=== PATIENT | female | born 1930 | race Caucasian/White ===

== ENCOUNTER 2017-07-25 15:11 | Inpatient (IN) ==
--- NOTE | 2017-07-25 15:15 | DR.GENAD ---
HPI - PCP Primary Care Physician: Dr Valenzuela - Complaint/Symptoms Chief Complaint Doctors Comments: Patient presented with complaint of i can't breath. She has a defibrillator but it did not go off. Followed by access clerk in [place]. She denies chest pain. PMH - PMH Past Medical History: Anemia, GERD, Headaches, Hypertension Past Surgical History: Yes Surgical History: Appendectomy, Cholecystectomy - Family History Family Medical History: Cancer - Social History Do you use any recreational Drugs:: No ROS - Review of Systems Eyes: No Symptoms Reported ENTM: No Symptoms Reported Respiratoy: See HPI Cardiovascular: No Symptoms Reported Gastrointestinal/Abdominal: No Symptoms Reported Genitourinary: No Symptoms Reported Neurological: No Symptoms Reported Musculoskeletal: No Symptoms Reported Integumentary: No Symptoms Reported Hematologic/Lymphatic: No Symptoms Reported Endocrine: No Symptoms Reported Psychiatric: No Symptoms Reported All Other Systems: Reviewed and Negative PE - General Limitations: No Limitations General Appearance: Alert, In No Apparent Distress - Head Head Exam: Normal Inspection, Atraumatic - Eyes Eye exam: Normal Appearance, PERRL, EOMI - ENT ENT Exam: Normal Exam External Ear Exam: Normal External Inspection TM/Canal Exam: Bilateral Normal Nose Exam: Normal Nose Exam Mouth Exam: Normal Inspection Throat Exam: Normal Inspection - Neck Neck Exam: Normal Inspection - Chest Chest Inspection: Normal Inspection - Respiratory Respiratory Exam: Normal Lung Sounds Bilat Respiratory Exam: Bilateral Clear to Auscultation - Cardiovascular Cardiovascular Exam: Regular Rate, Normal Rhythm - Abdominal Exam Abdominal Exam: Normal Inspection, Normal Bowel Sounds Abdominal Tenderness: negative: RUQ, RLQ, LUQ, LLQ, Epigastrium, Suprapubic, Diffuse, Mild, Moderate, Severe, Other - Extremities Extremities Exam: Normal Inspection, Full ROM - Back Back Exam: Normal Inspection, Full ROM - Neurologic Neurological Exam: Alert, Oriented X3, CN II-XII Intact - Psychiatric Psychiatric Exam: Normal Affect - Skin Skin Exam: Warm, Dry, Intact - Vital Signs Vitals: Temperature 98.1 F Pulse Rate [Apical] 82 Pulse Rate 88 Respiratory Rate 18 Blood Pressure [Left Arm] 164/115 Blood Pressure [Right Arm] 140/73 Blood Pressure 139/86 O2 Sat by Pulse Oximetry 95 Course - Reevaluation 1st: Improved ROR - Labs Reviewed Result Diagrams: 07/25/17 15:25 07/25/17 15:25 - XRAY XRAY Interpreted by: Radiologist (Chest: The cardiac silhouette appears markedly enlarged. The cardiac silhouette size may be accentuated by the AP projection. Therre are increased interstitial markings seen in the lungs bilaterally, with confluent opacities seen in the left mid and lower lung zones , obscuring visualization of the left hemidiaphragm and left costophrenic angle. Findings could be due to pulmonary edema and/or pneumonia, with a possible associated small left-sided pleural effusion.) - Labs Reviewed Laboratory: WBC 6.7 X10^3/uL (3.6-10.0) 07/25/17 15:25 RBC 4.34 X10^6/uL (3.5-5.4) 07/25/17 15:25 Hgb 12.4 g/dL (12.0-16.0) 07/25/17 15:25 Hct 37.1 % (36.0-47.0) 07/25/17 15:25 MCV 85.4 fL (80.0-100.0) 07/25/17 15:25 MCH 28.5 pg (27.0-34.0) 07/25/17 15:25 MCHC 33.4 g/dL (33.0-35.0) 07/25/17 15:25 RDW 13.8 % (11.6-16.5) 07/25/17 15: Plt Count 185 X10^3/uL (150.0-450.0) 07/25/17 15:25 MPV 8.7 fL (7.4-11.0) 07/25/17 15:25 Neut % (Auto) 52.8 % (42.0-75.0) 07/25/17 15:25 Lymph % (Auto) 34.4 % (21.0-51.0) 07/25/17 15:25 [place] % (Auto) 9.7 % (0.0-13.0) 07/25/17 15:25 Eos % (Auto) 1.8 % (0.9-2.9) 07/25/17 15:25 Baso % (Auto) 1.3 % (0.2-1.0) H 07/25/17 15:25 Neut # (Auto) 3.5 x10^3/uL (2.2-4.8) 07/25/17 15:25 Lymph # (Auto) 2.3 X10^3/uL (1.3-2.9) 07/25/17 15:25 [place] # (Auto) 0.6 x10^3/uL (0.3-0.8) 07/25/17 15: Eos # (Auto) 0.1 x10^3/uL (0.0-0.2) 07/25/17: Baso # (Auto) 0.1 X10^3/uL (0.0-0.1) 07/25/17 15: Absolute Nucleated RBC 0.1 /100WBC 07/25/17: INR Target Range - 07/25/17: INR 1.68 (0.8-1.3) H 07/25/17 15: D-Dimer 146 ng/mL (0-400) 07/25/17 15: Sample Site Lb 07/25/17 15: ABG pH 7.420 (7.35-7.45) 07/25/17: ABG pCO2 34.0 mmHg (35.0-45.0) L 07/25/17 15: ABG pO2 107.0 mmHg (80.0-100.0) H 07/25/17: ABG HCO3 22.1 mmol/L (22-26) 07/25/17: ABG O2 Saturation 98.0 % (90-100) 07/25/17: ABG Base Excess -1.8 mmol/L (-2.0-2.0) 07/25/17: Figueroa Test N/a 07/25/17: A-a Gradient 50.0 mmHg 07/25/17 15: FiO2 28.000 07/25/17 15:33 Blood Gas Comments Pt [facility]vey well. cdn 07/25/17 15: Sodium 127 mmol/L (136-145) L 07/25/17 15: Corrected Sodium 128 mmol/L (136-145) L 07/25/17 15: Potassium 5.0 mmol/L (3.5-5.1) 07/25/17 15: Chloride 94 mmol/L (98-107) L 07/25/17 15:25 Carbon Dioxide 22.8 mmol/L (21-32) 07/25/17 15:25 BUN 21 mg/dL (7-18) H 07/25/17 15:25 Creatinine 1.14 mg/dL (0.55-1.02) H 07/25/17 15:25 Est GFR (MDRD) Af Amer 58 (>60) L 07/25/17 15:25 Est GFR (MDRD) Non-Af 48 (>60) L 07/25/17 15:25 Glucose 129 mg/dL (65-99) H 07/25/17 15:25 Calcium 9.2 mg/dL (8.5-10.1) 07/25/17 15:25 Corrected Calcium TNP 07/25/17 15:25 Magnesium 1.9 mg/dL (1.7-2.9) 07/25/17 15:25 Total Bilirubin 1.10 mg/dL (0.2-1.0) H 07/25/17 15:25 AST 41 Units/L (15-37) H 07/25/17 15:25 ALT 33 Units/L (12-78) 07/25/17 15:25 Alkaline Phosphatase 70 Units/L (46-116) 07/25/17 15:25 Creatine Kinase 50 Units/L (26-192) 07/25/17 15:25 CK-MB (CK-2) 1.2 ng/mL (0-4.0) 07/25/17 15:25 CK/CKMB % Calc 2.4 % (<4) 07/25/17 15:25 Troponin I < 0.02 ng/mL (0-1.5) 07/25/17 15:25 Total Protein 6.6 g/dL (6.4-8.2) 07/25/17 15:25 Albumin 3.4 g/dL (3.4-5.0) 07/25/17 15:25 Globulin 3.2 g/dL (2.5-4.5) 07/25/17 15:25 Albumin/Globulin Ratio 1.1 Ratio (1.1-2.1) 07/25/17 15:25 - Diagnosis Discharge Problem: Hyponatremia Pneumonia Qualifiers: Pneumonia type: due to unspecified organism Laterality: left Lung location: lower lobe of lung Qualified Code(s): J18.1 - Lobar pneumonia, unspecified organism Dyspnea Qualifiers: Dyspnea type: shortness of breath Qualified Code(s): R06.02 - Shortness of breath - Discharge Plan Disposition: ADMITTED INPATIENT Condition: Stable - Follow ups/Referrals Follow ups/Referrals: Alexander Valenzuela [Primary Care Provider] - 3 days - Instructions
[2017-07-25 15:38] LABS: ABG BASE EXCESS -1.8 mmol/L (-2.0-2.0); ABG HCO3 22.1 mmol/L (22-26)
[2017-07-25 15:45] LABS: BASOPHILS # (AUTO) 0.1 X10^3/uL (0.0-0.1); BASOPHILS % (AUTO) 1.3 % (0.2-1.0); EOSINOPHILS # (AUTO) 0.1 x10^3/uL (0.0-0.2); EOSINOPHILS % (AUTO) 1.8 % (0.9-2.9); HEMATOCRIT 37.1 % (36.0-47.0); HEMOGLOBIN 12.4 g/dL (12.0-16.0); LYMPHOCYTES # (AUTO) 2.3 X10^3/uL (1.3-2.9); LYMPHOCYTES % (AUTO) 34.4 % (21.0-51.0); MEAN CORPUSCULAR HEMOGLOBIN 28.5 pg (27.0-34.0); MEAN CORPUSCULAR HGB CONC 33.4 g/dL (33.0-35.0); MEAN CORPUSCULAR VOLUME 85.4 fL (80.0-100.0); MEAN PLATELET VOLUME 8.7 fL (7.4-11.0); MONOCYTES # (AUTO) 0.6 x10^3/uL (0.3-0.8); MONOCYTES % (AUTO) 9.7 % (0.0-13.0); NEUTROPHILS # (AUTO) 3.5 x10^3/uL (2.2-4.8); NEUTROPHILS % (AUTO) 52.8 % (42.0-75.0); PLATELET COUNT 185 X10^3/uL (150.0-450.0); RED BLOOD COUNT 4.34 X10^6/uL (3.5-5.4); RED CELL DISTRIBUTION WIDTH 13.8 % (11.6-16.5); WHITE BLOOD COUNT 6.7 X10^3/uL (3.6-10.0)
[2017-07-25 15:51] LABS: BLOOD UREA NITROGEN 21 mg/dL (7-18); CALCIUM 9.2 mg/dL (8.5-10.1); CARBON DIOXIDE 22.8 mmol/L (21-32); CHLORIDE 94 mmol/L (98-107); COR NA(FOR HYPERGLY) 128 mmol/L (136-145); CREATININE 1.14 mg/dL (0.55-1.02); SODIUM 127 mmol/L (136-145); TROPONIN I < 0.02 ng/mL (0-1.5); eGFR NON BLACK RACES 48 (>60)
[2017-07-25 15:55] LABS: ALANINE AMINOTRANSFERASE 33 Units/L (12-78); ALBUMIN 3.4 g/dL (3.4-5.0); ALKALINE PHOSPHATASE 70 Units/L (46-116); ASPARTATE AMINO TRANSFERASE 41 Units/L (15-37); CKMB % 2.4 % (<4); CREATINE KINASE 50 Units/L (26-192); CREATINE KINASE MB 1.2 ng/mL (0-4.0); MAGNESIUM 1.9 mg/dL (1.7-2.9); TOTAL PROTEIN 6.6 g/dL (6.4-8.2)
[2017-07-25] MEDS: NS 1000 ML 1,000 ML IV SCH (16:00)
--- NOTE | 2017-07-25 16:50 | RAD ---
Examination: Chest x-ray. Clinical history: Weakness and shortness of breath for 1 day. Technique: A single portable AP view of the chest was obtained. Comparison: 12/28/2015. Findings: A pacemaker/defibrillator device is seen overlying the right hemithorax with the lead terminating in the right ventricle. Monitor leads are seen overlying the chest. The cardiac silhouette appears markedly enlarged. The cardiac silhouette size may be accentuated by t he AP projection. The thoracic aorta is calcified and tortuous. No pneumothorax is noted. There are increased interstitial markings seen in the lungs bilaterally, with confluent opacities see n in the left mid and lower lung zones, obscuring visualization of the left hemidiaphragm and left co stophrenic angle. Findings could be due to pulmonary edema and/or pneumonia, with a possible associat ed small left-sided pleural effusion. The bones are diffusely osteopenic. There is a mild thoracolumbar scoliosis seen convex to the left, probably positional in nature. Degenerative changes are noted in the spine. No acute osseous abnormal ity is noted. Impression: 1. The cardiac silhouette appears markedly enlarged. The cardiac silhouette size may be accentuated b y the AP projection. 2. There are increased interstitial markings seen in the lungs bilaterally, with confluent opacities seen in the left mid and lower lung zones, obscuring visualization of the left hemidiaphragm and left costophrenic angle. Findings could be due to pulmonary edema and/or pneumonia, with a possible assoc iated small left-sided pleural effusion. Reported By:
[2017-07-25] MEDS ORDERED: ROCEPHIN VIAL 1 GRAM 1 G in NS 100 ML IV + SPIKE MINIBAG* 100 ML IV ONE (17:20)
[2017-07-25] MEDS ORDERED: ROCEPHIN 1 GRAM IV PREMIX 1 G/50 ML IV.SOLN. IV ONE (17:43)
[2017-07-25] MEDS ORDERED: TUSSIONEX PENNKINETIC SUSP PO PRN (18:08)
[2017-07-25] MEDS ORDERED: SODIUM CHL HYPERTONIC ** 3% ** 500 ML IV ONE (18:19)
[2017-07-25] MEDS ORDERED: SALINE 3% 15 ML NEB TX ONE (18:44)
[2017-07-25] MEDS ORDERED: SALINE 3% 15 ML NEB TX NEB ONE (18:45)
[2017-07-25] MEDS ORDERED: NS 1/2 1000 ML IV 1,000 ML IV SCH (19:00)
[2017-07-25 19:56] VITALS: BMI 22.2
[2017-07-25] MEDS ORDERED: TYLENOL 325 MG TAB PO PRN (19:57)
[2017-07-25] MEDS: LASIX PO SCH (20:24)
[2017-07-25] MEDS: ROBITUSSIN DM PO SCH (20:24)
[2017-07-25] MEDS: COREG TAB 12.5 MG PO SCH (20:27)
[2017-07-25] MEDS: DUONEB 0.5 MG/3 MG NEB SCH (20:43)
--- NOTE | 2017-07-25 21:26 | DR.H&P ---
H&P - History & Physical for Day of: H&P Date: 07/25/17 - Chief Complaint Chief Complaint: SHORTNESS OF BREATH - History of Present Illness History of Present Illness: IS A 87 YEAR OLD PATIENT OF OURS WHO PRESENTED TO THE EMERGENCY ROOM WITH COMPLAINTS OF SHORTNESS OF BREATH. SHE DENIES CHEST PAIN AT THE TIME. PATIENT REPORTS THAT SHE DOES HAVE A DEFIBRILLATOR, BUT DENIES IT GOING OFF. SHE ALSO REPORTS WEAKNESS FOR THE PAST TWO DAYS. ON ARRIVAL, VITALS WERE 98.1-88-22-94%RA-139/86. LABS WERE OBTAINED. ABNORMAL LAB VALUES INCLUDE THE FOLLOWING: INR 1.68, SODIUM 127, CHLORIDE 94, BUN 21, CREATININE 1.14, GLUCOSE 129, TOTAL PROTEIN 1.10, AST 41. AN ABG WAS OBTAINED AND REVEALED PH 7.420, PC02 34.0, P02 107.0, HC03 22.1, 02 SATURATION 98.0. EKG REVEALED ATRIAL FIBRILLATION WITH HR 86. CHEST XRAY REVEALED MARKEDLY ENLARGED CARDIAC SILHUETTE. INCREASED INTERSTITIAL MARKINGS SEEN IN THE LUNGS BILATERALLY, WITH CONFLUENT OPACITIES SEEN IN THE LEFT MID AND LOWER LUNG ZONES , OBSCURING VISUALIZATION OF THE LEFT HEMIDIAPHRAGM AND LEFT COSTOPHRENIC ANGLE. FINDINGS COULD BE DUE TO PULMONARY EDEMA AND.OR PNEUMONIA, WITH A POSSIBLE ASSOCIATED SMALL LEFT SIDED PLEURAL EFFUSION. SHE WAS ADMITTED TO THE HOSPITAL FOR FURTHER EVALUATION AND TREATMENT. SHE WAS STARTED ON DUONEBS, NORMAL SALINE AT 100ML/HR, LEVAQUIN IV, AND FORTAZ IV. WE PLAN TO FOLLOW UP WITH AM LABS AND CHEST XRAY AND CONTINUE TO MONITOR PATIENT. - Past Medical History Past Medical History: Anemia, GERD, Headaches, Hypertension - Past Surgical History Surgical History: Appendectomy, Cholecystectomy - Family History Family Medical History: Diabetes Mellitus, Cancer, [place], Coronary Artery Disease, Hypertension - Social History Does patient currently use any type of tobacco product: No Have you used tobacco products in the last 12 months: No Type of Tobacco Use: None Does any household member use tobacco: No Alcohol Use: None Drug Use: None - Medications Home Medications: Sulfa (Sulfonamide Antibiotics) [SULFA] Allergy (Verified 07/25/17 15:15) CONTINUE taking the following medications carvedilol 1 tab PO BID 07/25/17 [History] furosemide 1 tab PO BID 07/25/17 [History] pantoprazole [Protonix] 1 tab PO DAILY 07/25/17 [History] potassium chloride 2 tab PO DAILY 07/25/17 [History] rivaroxaban [Xarelto] 1 tab PO DAILY 07/25/17 [History] sacubitril-valsartan [Entresto] 0.5 tab PO BID 07/25/17 [History] - Review of Systems Constitutional: Weakness Eyes: No Symptoms Reported ENT: No Symptoms Reported Respiratory: Cough, Shortness of Breath. denies: Sputum Cardiovascular: No Symptoms Reported Gastrointestinal: No Symptoms Reported Genitourinary: No Symptoms Reported Musculoskeletal: No Symptoms Reported Skin: No Symptoms Reported Neurological: Weakness - Physical Exam Vital Signs: Temperature 98.2 F Pulse Rate [Apical] 94 Pulse Rate 89 Respiratory Rate 20 Blood Pressure [Left Arm] 164/115 Blood Pressure [Right Arm] 131/89 Blood Pressure 139/86 O2 Sat by Pulse Oximetry 99 Oriented: Normal Eyes: Normal Ear: Normal Nose: Normal Throat: Normal Respiratory: Diminished Throughout Cardiovascular: Normal : Normal Auscultation: Bowel Sounds: Normal Palpation: Normal Tenderness: Normal Skin: Normal Musculoskeletal: Normal Psychiatric: Normal Mood Description: Calm Affect: Normal Speech Pattern: Clear - Assessment/Plan (1) Pneumonia Qualifiers: Pneumonia type: due to unspecified organism Laterality: left Lung location: lower lobe of lung Qualified Code(s): J18.1 - Lobar pneumonia, unspecified organism Status: Acute Plan: PNEUMONIA PROTOCOL, LEVAQUIN IV, FORTAZ IV, SUPPLEMENTAL OXYGEN, RESPIRATORY TREATMENTS, CONTINUE TO MONITOR (2) Dyspnea Qualifiers: Dyspnea type: shortness of breath Qualified Code(s): R06.02 - Shortness of breath; R06.00 - Dyspnea, unspecified; R06.01 - Orthopnea Status: Acute (3) Hyponatremia Status: Acute Plan: NORMAL SALINE AT 100ML/HR, CONTINUE TO MONITOR - Allergies Allergies/Adverse Reactions: Allergies Allergy/AdvReac Type Severity Reaction Status Date / Time Sulfa (Sulfonamide Allergy Verified 07/25/17 15:15 Antibiotics) [SULFA]
[2017-07-25 21:52] LABS: CREATINE KINASE 47 Units/L (26-192); CREATINE KINASE MB 1.4 ng/mL (0-4.0); TROPONIN I < 0.02 ng/mL (0-1.5)
[2017-07-25] MEDS: LEVAQUIN PREMIX IV 750 MG 750 MG/150 ML BAG IV SCH (22:17)
[2017-07-26] MEDS: DUONEB 0.5 MG/3 MG NEB SCH ×6 (00:53→20:35)
[2017-07-26] MEDS: NS 1000 ML 1,000 ML IV SCH ×2 (04:07→09:22)
[2017-07-26 04:21] LABS: BASOPHILS # (AUTO) 0.1 X10^3/uL (0.0-0.1); BASOPHILS % (AUTO) 1.1 % (0.2-1.0); EOSINOPHILS # (AUTO) 0.1 x10^3/uL (0.0-0.2); EOSINOPHILS % (AUTO) 1.6 % (0.9-2.9); HEMATOCRIT 36.2 % (36.0-47.0); HEMOGLOBIN 12.2 g/dL (12.0-16.0); LYMPHOCYTES # (AUTO) 1.8 X10^3/uL (1.3-2.9); LYMPHOCYTES % (AUTO) 26.2 % (21.0-51.0); MEAN CORPUSCULAR HEMOGLOBIN 28.7 pg (27.0-34.0); MEAN CORPUSCULAR HGB CONC 33.7 g/dL (33.0-35.0); MEAN CORPUSCULAR VOLUME 85.1 fL (80.0-100.0); MEAN PLATELET VOLUME 8.7 fL (7.4-11.0); MONOCYTES # (AUTO) 0.8 x10^3/uL (0.3-0.8); MONOCYTES % (AUTO) 12.3 % (0.0-13.0); NEUTROPHILS % (AUTO) 58.8 % (42.0-75.0); PLATELET COUNT 160 X10^3/uL (150.0-450.0); RED BLOOD COUNT 4.26 X10^6/uL (3.5-5.4); RED CELL DISTRIBUTION WIDTH 13.8 % (11.6-16.5); WHITE BLOOD COUNT 6.7 X10^3/uL (3.6-10.0)
[2017-07-26 04:36] LABS: ALANINE AMINOTRANSFERASE 31 Units/L (12-78); ALBUMIN 2.9 g/dL (3.4-5.0); ALKALINE PHOSPHATASE 59 Units/L (46-116); ASPARTATE AMINO TRANSFERASE 27 Units/L (15-37); BLOOD UREA NITROGEN 25 mg/dL (7-18); CALCIUM 8.6 mg/dL (8.5-10.1); CARBON DIOXIDE 25.7 mmol/L (21-32); CHLORIDE 97 mmol/L (98-107); CKMB % 3.2 % (<4); COR CA(FOR HYPOALB) 9.5 mg/dL (8.5-10.1); CREATINE KINASE 38 Units/L (26-192); CREATINE KINASE MB 1.2 ng/mL (0-4.0); CREATININE 1.21 mg/dL (0.55-1.02); SODIUM 131 mmol/L (136-145); TOTAL PROTEIN 5.9 g/dL (6.4-8.2); TROPONIN I < 0.02 ng/mL (0-1.5); eGFR NON BLACK RACES 45 (>60)
--- NOTE | 2017-07-26 07:03 | RAD ---
HISTORY: Follow-up pneumonia Study: Chest PA and lateral Comparison: 07/25/2017 Findings: There is a pacemaker present on the right. The heart remains enlarged. No definite congestive heart f ailure is noted. The liliya are normal. The aorta is calcified. The lungs are well inflated with the ex ception of a focus of subsegmental atelectasis in the lingula. No acute alveolar infiltrates are iden tified. A small left pleural effusion is present. The bony thorax is unremarkable. IMPRESSION: Moderate cardiomegaly without congestive heart failure Subsegmental atelectasis left mid lung Small left pleural effusion Reported By:
[2017-07-26] MEDS: PROTONIX TAB 40 MG PO SCH (09:21)
[2017-07-26] MEDS: COREG TAB 12.5 MG PO SCH ×2 (09:21→20:40)
[2017-07-26] MEDS: ROBITUSSIN DM PO SCH ×4 (09:21→20:40)
[2017-07-26] MEDS: LASIX PO SCH ×2 (09:21→20:40)
[2017-07-26] MEDS: XARELTO PO SCH (09:21)
[2017-07-26 11:20] LABS: CKMB % 2.5 % (<4); CREATINE KINASE 49 Units/L (26-192); CREATINE KINASE MB 1.2 ng/mL (0-4.0); TROPONIN I < 0.02 ng/mL (0-1.5)
[2017-07-26 15:03] LABS: BILIRUBIN,URINE NEGATIVE (NEGATIVE); BLOOD/HEMOGLOBIN,URINE NEGATIVE (NEGATIVE); GLUCOSE, URINE NEGATIVE (NEGATIVE); KETONES,URINE NEGATIVE (NEGATIVE); LEUKOCYTE ESTERASE ,URINE NEGATIVE (NEGATIVE); NITRITES,URINE NEGATIVE (NEGATIVE); PROTEIN,URINE NEGATIVE (NEGATIVE); UROBILINOGEN,URINE NORMAL (NORMAL)
[2017-07-26 15:07] LABS: APPEARANCE,URINE CLEAR (CLEAR); COLOR,URINE PALE YELLOW (YELLOW)
[2017-07-26 15:42] LABS: CALCIUM 8.6 mg/dL (8.5-10.1); CARBON DIOXIDE 28.5 mmol/L (21-32); CREATININE 1.43 mg/dL (0.55-1.02)
[2017-07-26] MEDS: FORTAZ or TAZICEF VIAL INJ 1 G in NS 100 ML IV + SPIKE MINIBAG* 100 ML IV SCH (20:41)
[2017-07-27] MEDS: DUONEB 0.5 MG/3 MG NEB SCH ×6 (00:22→21:59)
[2017-07-27] MEDS ORDERED: VISTARIL PO PRN (03:39)
[2017-07-27 06:07] LABS: BASOPHILS % (AUTO) 0.4 % (0.2-1.0); EOSINOPHILS # (AUTO) 0.3 x10^3/uL (0.0-0.2); EOSINOPHILS % (AUTO) 3.8 % (0.9-2.9); HEMATOCRIT 36.7 % (36.0-47.0); HEMOGLOBIN 12.4 g/dL (12.0-16.0); LYMPHOCYTES # (AUTO) 1.6 X10^3/uL (1.3-2.9); MEAN CORPUSCULAR HEMOGLOBIN 28.5 pg (27.0-34.0); MEAN CORPUSCULAR HGB CONC 33.7 g/dL (33.0-35.0); MEAN CORPUSCULAR VOLUME 84.7 fL (80.0-100.0); MONOCYTES # (AUTO) 0.7 x10^3/uL (0.3-0.8); NEUTROPHILS # (AUTO) 5.5 x10^3/uL (2.2-4.8); NEUTROPHILS % (AUTO) 66.8 % (42.0-75.0); PLATELET COUNT 177 X10^3/uL (150.0-450.0); RED BLOOD COUNT 4.33 X10^6/uL (3.5-5.4); RED CELL DISTRIBUTION WIDTH 13.7 % (11.6-16.5); WHITE BLOOD COUNT 8.2 X10^3/uL (3.6-10.0)
[2017-07-27 06:33] LABS: BLOOD UREA NITROGEN 27 mg/dL (7-18); CALCIUM 9.1 mg/dL (8.5-10.1); CARBON DIOXIDE 26.7 mmol/L (21-32); CHLORIDE 91 mmol/L (98-107); CREATININE 1.39 mg/dL (0.55-1.02); SODIUM 127 mmol/L (136-145); eGFR NON BLACK RACES 38 (>60)
[2017-07-27] MEDS: PROTONIX TAB 40 MG PO SCH (08:27)
[2017-07-27] MEDS: ROBITUSSIN DM PO SCH ×4 (08:27→20:44)
[2017-07-27] MEDS: COREG TAB 12.5 MG PO SCH ×2 (08:27→20:42)
[2017-07-27] MEDS: XARELTO PO SCH (08:27)
[2017-07-27] MEDS: LASIX PO SCH ×2 (08:27→20:44)
[2017-07-27] MEDS: FORTAZ or TAZICEF VIAL INJ 1 G in NS 100 ML IV + SPIKE MINIBAG* 100 ML IV SCH (20:42)
[2017-07-27] MEDS: LEVAQUIN PREMIX IV 750 MG 750 MG/150 ML BAG IV SCH (21:05)
[2017-07-28] MEDS: DUONEB 0.5 MG/3 MG NEB SCH ×3 (01:46→09:17)
[2017-07-28 05:43] LABS: BLOOD UREA NITROGEN 22 mg/dL (7-18); CALCIUM 8.9 mg/dL (8.5-10.1); CARBON DIOXIDE 30.7 mmol/L (21-32); CHLORIDE 89 mmol/L (98-107); SODIUM 126 mmol/L (136-145); eGFR NON BLACK RACES 38 (>60)
[2017-07-28 06:09] LABS: BASOPHILS # (AUTO) 0.1 X10^3/uL (0.0-0.1); BASOPHILS % (AUTO) 0.7 % (0.2-1.0); EOSINOPHILS # (AUTO) 0.4 x10^3/uL (0.0-0.2); EOSINOPHILS % (AUTO) 4.9 % (0.9-2.9); HEMATOCRIT 35.9 % (36.0-47.0); HEMOGLOBIN 12.3 g/dL (12.0-16.0); LYMPHOCYTES # (AUTO) 2.1 X10^3/uL (1.3-2.9); LYMPHOCYTES % (AUTO) 27.2 % (21.0-51.0); MEAN CORPUSCULAR HGB CONC 34.3 g/dL (33.0-35.0); MEAN CORPUSCULAR VOLUME 84.6 fL (80.0-100.0); MEAN PLATELET VOLUME 9.5 fL (7.4-11.0); MONOCYTES # (AUTO) 0.8 x10^3/uL (0.3-0.8); MONOCYTES % (AUTO) 10.4 % (0.0-13.0); NEUTROPHILS # (AUTO) 4.4 x10^3/uL (2.2-4.8); NEUTROPHILS % (AUTO) 56.8 % (42.0-75.0); PLATELET COUNT 182 X10^3/uL (150.0-450.0); RED BLOOD COUNT 4.25 X10^6/uL (3.5-5.4); RED CELL DISTRIBUTION WIDTH 13.5 % (11.6-16.5); WHITE BLOOD COUNT 7.7 X10^3/uL (3.6-10.0)
[2017-07-28 08:53] VITALS: BP 131/66
[2017-07-28] MEDS: LASIX PO SCH (08:57)
[2017-07-28] MEDS: PROTONIX TAB 40 MG PO SCH (08:57)
[2017-07-28] MEDS: COREG TAB 12.5 MG PO SCH (08:57)
[2017-07-28] MEDS: XARELTO PO SCH (08:57)
[2017-07-28] MEDS: ROBITUSSIN DM PO SCH (09:08)
[2017-07-28 13:47] LABS: ALANINE AMINOTRANSFERASE 23 Units/L (12-78); ALBUMIN 3.1 g/dL (3.4-5.0); ALKALINE PHOSPHATASE 58 Units/L (46-116); ASPARTATE AMINO TRANSFERASE 22 Units/L (15-37); COR CA(FOR HYPOALB) 9.6 mg/dL (8.5-10.1); TOTAL PROTEIN 6.5 g/dL (6.4-8.2)
--- NOTE | 2017-07-28 19:55 | PCM.PROG ---
Progress Note - Progress Note for Day of Date: 07/26/17 - Subjective Subjective: IS BEING TREATED FOR LLL PNEUMONIA, HYPONATREMIA, AND DYSPNEA. TODAY, SHE IS ALERT AND ORIENTED, LYING IN BED ON MORNING ROUNDS. SHE CONTINUES WITH COMPLAINTS OF A NON-PRODUCTIVE COUGH AND SHORTNESS OF BREATH. ON EXAMINATION, HEART IS REGULAR IN RATE AND RHYTHM. BILATERAL LUNGS ARE NOTED WITH DIMINISHED LUNG SOUNDS THROUGHOUT. SHE IS CURRENTLY UTILIZING OXYGEN VIA NASAL CANNULA AT 2L/MIN. ABDOMEN IS ROUND, SOFT, AND NON-TENDER WITH NORMAL BOWEL SOUNDS NOTED IN ALL QUADRANTS. HER VITALS TODAY ARE 98.6-89-20-97%-132/ 73. LABS WERE OBTAINED. ABNORMAL LAB VALUES INCLUDE THE FOLLOWING: SODIUM 131, CHLORIDE 97, BUN 25, CREATININE 1.21, TOTAL PROTEIN 5.9, ALBUMIN 2.9. CARDIAC ENZYMES AND EKS WITHIN NORMAL LIMITS. HER CHEST XRAY TODAY REVEALS CARDIOMEGALY [id number] CHF. SUBSEGMENTAL ATELECTASIS LEFT MID LUNG. SMALL LEFT PLEURAL EFFUSION. WE WILL CONTINUE WITH IV ANTIBIOTICS, RESPIRATORY TREATMENTS, AND SUPPLEMENTAL OXYGEN TODAY. WE WILL OBTAIN A URINALYSIS AND SALINE LOCK FLUIDS. OTHERWISE, WE WILL FOLLOW UP WITH AM LABS AND CONTINUE TO MONITOR PATIENT. - Past Medical Family Social History Past Med/Fam/Surg Hx: No changes since H&P Allergies: Allergies Sulfa (Sulfonamide Antibiotics) [SULFA] Allergy (Verified 07/25/17 15:15) - Review of Systems ROS: No change since H&P - Vital Signs and I&O's Vital Signs: Temperature 98.7 F Pulse Rate [Left Brachial] 100 Pulse Rate [Right Brachial] 102 Pulse Rate [Apical] 69 Pulse Rate 82 Respiratory Rate 20 Blood Pressure [Left Arm] 131/66 Blood Pressure [Right Arm] 125/59 Blood Pressure 139/86 O2 Sat by Pulse Oximetry 98 Intake and Output: Intake & Output 07/26/17 07/27/17 07/28/17 07/29/17 11:59 11:59 11:59 11:59 Intake Total 2150 / 2150 1310 / 1310 1290 / 1290 Output Total 2500 / 2500 1900 / 1900 2900 / 2900 Balance -350 / -350 -590 / -590 -1610 / -1610 - Physical Exam Oriented: Normal Eyes: Normal Ear: Normal Nose: Normal Throat: Normal Respiratory: Diminished Cardiovascular: Normal : Normal Auscultation: Bowel Sounds: Normal Palpation: Normal Tenderness: Normal Skin: Normal Musculoskeletal: Normal Psychiatric: Normal Mood Description: Calm Affect: Normal Speech Pattern: Clear, Appropriate - Laboratory and Diagnostics Result Diagrams: 07/28/17 04:40 07/28/17 04:40 Labs: 07/25/17 19:34 Sputum - Expectorated Sputum Sputum Culture - Final 07/25/17 19:34 Sputum - Expectorated Sputum - Final 07/25/17 17:34 Blood Blood Culture - Preliminary 07/25/17 17:42 Blood Blood Culture - Preliminary Laboratory WBC 7.7 X10^3/uL (3.6-10.0) 07/28/17 04:40 RBC 4.25 X10^6/uL (3.5-5.4) 07/28/17 04:40 Hgb 12.3 g/dL (12.0-16.0) 07/28/17 04:40 Hct 35.9 % (36.0-47.0) L 07/28/17 04:40 MCV 84.6 fL (80.0-100.0) 07/28/17 04:40 MCH 29.0 pg (27.0-34.0) 07/28/17 04:40 MCHC 34.3 g/dL (33.0-35.0) 07/28/17 04:40 RDW 13.5 % (11.6-16.5) 07/28/17 04:40 Plt Count 182 X10^3/uL (150.0-450.0) 07/28/17 04:40 MPV 9.5 fL (7.4-11.0) 07/28/17 04:40 Neut % (Auto) 56.8 % (42.0-75.0) 07/28/17 04:40 Lymph % (Auto) 27.2 % (21.0-51.0) 07/28/17 04:40 [place] % (Auto) 10.4 % (0.0-13.0) 07/28/17 04:40 Eos % (Auto) 4.9 % (0.9-2.9) H 07/28/17 04:40 Baso % (Auto) 0.7 % (0.2-1.0) 07/28/17 04:40 Neut # (Auto) 4.4 x10^3/uL (2.2-4.8) 07/28/17 04:40 Lymph # (Auto) 2.1 X10^3/uL (1.3-2.9) 07/28/17 04:40 [place] # (Auto) 0.8 x10^3/uL (0.3-0.8) 07/28/17 04:40 Eos # (Auto) 0.4 x10^3/uL (0.0-0.2) H 07/28/17 04:40 Baso # (Auto) 0.1 X10^3/uL (0.0-0.1) 07/28/17 04:40 Absolute Nucleated RBC 0.1 /100WBC 07/28/17 04:40 INR Target Range - 07/25/17 15:25 INR 1.68 (0.8-1.3) H 07/25/17 15:25 D-Dimer 146 ng/mL (0-400) 07/25/17 15:25 Sample Site Lb 07/25/17 15:33 ABG pH 7.420 (7.35-7.45) 07/25/17 15:33 ABG pCO2 34.0 mmHg (35.0-45.0) L 07/25/17 15:33 ABG pO2 107.0 mmHg (80.0-100.0) H 07/25/17 15:33 ABG HCO3 22.1 mmol/L (22-26) 07/25/17 15:33 ABG O2 Saturation 98.0 % (90-100) 07/25/17 15:33 ABG Base Excess -1.8 mmol/L (-2.0-2.0) 07/25/17 15:33 Figueroa Test N/a 07/25/17 15:33 A-a Gradient 50.0 mmHg 07/25/17 15:33 FiO2 28.000 07/25/17 15:33 Blood Gas Comments Pt [facility]vey well. cdn 07/25/17 15:33 Sodium 126 mmol/L (136-145) L 07/28/17 04:40 Corrected Sodium TNP 07/28/17 04:40 Potassium 3.9 mmol/L (3.5-5.1) 07/28/17 04:40 Chloride 89 mmol/L (98-107) L 07/28/17 04:40 Carbon Dioxide 30.7 mmol/L (21-32) 07/28/17 04:40 BUN 22 mg/dL (7-18) H 07/28/17 04:40 Creatinine 1.40 mg/dL (0.55-1.02) H 07/28/17 04:40 Est GFR (MDRD) Af Amer 46 (>60) L 07/28/17 04:40 Est GFR (MDRD) Non-Af 38 (>60) L 07/28/17 04:40 Glucose 98 mg/dL (65-99) 07/28/17 04:40 Lactic Acid 0.8 mmol/L (0.4-2.0) 07/25/17 17:34 Calcium 8.9 mg/dL (8.5-10.1) 07/28/17 04:40 Corrected Calcium 9.6 mg/dL (8.5-10.1) 07/28/17 04:40 Magnesium 1.9 mg/dL (1.7-2.9) 07/25/17 15:25 Total Bilirubin 1.00 mg/dL (0.2-1.0) 07/28/17 04:40 AST 22 Units/L (15-37) 07/28/17 04:40 ALT 23 Units/L (12-78) 07/28/17 04:40 Alkaline Phosphatase 58 Units/L (46-116) 07/28/17 04:40 Creatine Kinase 49 Units/L (26-192) 07/26/17 10:43 CK-MB (CK-2) 1.2 ng/mL (0-4.0) 07/26/17 10:43 CK/CKMB % Calc 2.5 % (<4) 07/26/17 10:43 Troponin I < 0.02 ng/mL (0-1.5) 07/26/17 10:43 Total Protein 6.5 g/dL (6.4-8.2) 07/28/17 04:40 Albumin 3.1 g/dL (3.4-5.0) L 07/28/17 04:40 Globulin 3.4 g/dL (2.5-4.5) 07/28/17 04:40 Albumin/Globulin Ratio 0.9 Ratio (1.1-2.1) L 07/28/17 04:40 Specimen Type Clean catch urine 07/26/17 14:55 Urine Color Pale yellow (YELLOW) 07/26/17 14:55 Urine Appearance Clear (CLEAR) 07/26/17 14:55 Urine pH 6.0 (5.0 - 8.0) 07/26/17 14:55 Ur Specific [place] 1.010 (1.000-1.030) 07/26/17 14:55 Urine Protein Negative (NEGATIVE) 07/26/17 14:55 Urine Glucose (UA) Negative (NEGATIVE) 07/26/17 14:55 Urine Ketones Negative (NEGATIVE) 07/26/17 14:55 Urine Occult Blood Negative (NEGATIVE) 07/26/17 14:55 Urine Nitrite Negative (NEGATIVE) 07/26/17 14:55 Urine Bilirubin Negative (NEGATIVE) 07/26/17 14:55 Urine Urobilinogen Normal (NORMAL) 07/26/17 14:55 Ur Leukocyte Esterase Negative (NEGATIVE) 07/26/17 14:55 - Plan (1) Pneumonia Status: Acute Qualifiers: Pneumonia type: due to unspecified organism Laterality: left Lung location: lower lobe of lung Qualified Code(s): J18.1 - Lobar pneumonia, unspecified organism Plan: PNEUMONIA PROTOCOL, LEVAQUIN IV, FORTAZ IV, SUPPLEMENTAL OXYGEN, RESPIRATORY TREATMENTS, CONTINUE TO MONITOR (2) Dyspnea Status: Acute Qualifiers: Dyspnea type: shortness of breath Qualified Code(s): R06.02 - Shortness of breath; R06.00 - Dyspnea, unspecified; R06.01 - Orthopnea (3) Hyponatremia Status: Acute Plan: CONTINUE TO MONITOR
--- NOTE | 2017-07-28 19:58 | PCM.PROG ---
Progress Note - Progress Note for Day of Date: 07/27/17 - Subjective Subjective: IS BEING TREATED FOR LLL PNEUMONIA, HYPONATREMIA, AND DYSPNEA. TODAY, SHE IS ALERT AND ORIENTED, LYING IN BED ON MORNING ROUNDS. SHE CONTINUES WITH COMPLAINTS OF A NON-PRODUCTIVE COUGH AND SHORTNESS OF BREATH, SLIGHTLY IMPROVED SINCE YESTERDAY. ON EXAMINATION, HEART IS REGULAR IN RATE AND RHYTHM. BILATERAL LUNGS ARE NOTED WITH DIMINISHED LUNG SOUNDS THROUGHOUT. SHE IS CURRENTLY UTILIZING OXYGEN VIA NASAL CANNULA AT 2L/MIN. ABDOMEN IS ROUND, SOFT, AND NON-TENDER WITH NORMAL BOWEL SOUNDS NOTED IN ALL QUADRANTS. HER VITALS TODAY ARE 97.8-102-20-95%-136/61. LABS WERE OBTAINED. ABNORMAL LAB VALUES INCLUDE THE FOLLOWING: SODIUM 127, CHLORIDE 91, BUN 27, CREATININE 1.39, GLUCOSE 100. CARDIAC ENZYMES AND EKGS WITHIN NORMAL LIMITS. WE WILL CONTINUE WITH IV ANTIBIOTICS, RESPIRATORY TREATMENTS, AND SUPPLEMENTAL OXYGEN TODAY. OTHERWISE, WE WILL FOLLOW UP WITH AM LABS AND CONTINUE TO MONITOR PATIENT. - Past Medical Family Social History Past Med/Fam/Surg Hx: No changes since H&P Allergies: Allergies Sulfa (Sulfonamide Antibiotics) [SULFA] Allergy (Verified 07/25/17 15:15) - Review of Systems ROS: No change since H&P - Vital Signs and I&O's Vital Signs: Temperature 98.7 F Pulse Rate [Left Brachial] 100 Pulse Rate [Right Brachial] 102 Pulse Rate [Apical] 69 Pulse Rate 82 Respiratory Rate 20 Blood Pressure [Left Arm] 131/66 Blood Pressure [Right Arm] 125/59 Blood Pressure 139/86 O2 Sat by Pulse Oximetry 98 Intake and Output: Intake & Output 07/26/17 07/27/17 07/28/17 07/29/17 11:59 11:59 11:59 11:59 Intake Total 2150 / 2150 1310 / 1310 1290 / 1290 Output Total 2500 / 2500 1900 / 1900 2900 / 2900 Balance -350 / -350 -590 / -590 -1610 / -1610 - Physical Exam Oriented: Normal Eyes: Normal Ear: Normal Nose: Normal Throat: Normal Respiratory: Diminished Cardiovascular: Normal : Normal Auscultation: Bowel Sounds: Normal Tenderness: Normal Skin: Normal Musculoskeletal: Normal Psychiatric: Normal Mood Description: Calm Affect: Normal Speech Pattern: Clear, Appropriate - Laboratory and Diagnostics Result Diagrams: 07/28/17 04:40 07/28/17 04:40 Labs: 07/25/17 19:34 Sputum - Expectorated Sputum Sputum Culture - Final 07/25/17 19:34 Sputum - Expectorated Sputum - Final 07/25/17 17:34 Blood Blood Culture - Preliminary 07/25/17 17:42 Blood Blood Culture - Preliminary Laboratory WBC 7.7 X10^3/uL (3.6-10.0) 07/28/17 04:40 RBC 4.25 X10^6/uL (3.5-5.4) 07/28/17 04:40 Hgb 12.3 g/dL (12.0-16.0) 07/28/17 04:40 Hct 35.9 % (36.0-47.0) L 07/28/17 04:40 MCV 84.6 fL (80.0-100.0) 07/28/17 04:40 MCH 29.0 pg (27.0-34.0) 07/28/17 04:40 MCHC 34.3 g/dL (33.0-35.0) 07/28/17 04:40 RDW 13.5 % (11.6-16.5) 07/28/17 04:40 Plt Count 182 X10^3/uL (150.0-450.0) 07/28/17 04:40 MPV 9.5 fL (7.4-11.0) 07/28/17 04:40 Neut % (Auto) 56.8 % (42.0-75.0) 07/28/17 04:40 Lymph % (Auto) 27.2 % (21.0-51.0) 07/28/17 04:40 [place] % (Auto) 10.4 % (0.0-13.0) 07/28/17 04:40 Eos % (Auto) 4.9 % (0.9-2.9) H 07/28/17 04:40 Baso % (Auto) 0.7 % (0.2-1.0) 07/28/17 04:40 Neut # (Auto) 4.4 x10^3/uL (2.2-4.8) 07/28/17 04:40 Lymph # (Auto) 2.1 X10^3/uL (1.3-2.9) 07/28/17 04:40 [place] # (Auto) 0.8 x10^3/uL (0.3-0.8) 07/28/17 04:40 Eos # (Auto) 0.4 x10^3/uL (0.0-0.2) H 07/28/17 04:40 Baso # (Auto) 0.1 X10^3/uL (0.0-0.1) 07/28/17 04:40 Absolute Nucleated RBC 0.1 /100WBC 07/28/17 04:40 INR Target Range - 07/25/17 15:25 INR 1.68 (0.8-1.3) H 07/25/17 15:25 D-Dimer 146 ng/mL (0-400) 07/25/17 15:25 Sample Site Lb 07/25/17 15:33 ABG pH 7.420 (7.35-7.45) 07/25/17 15:33 ABG pCO2 34.0 mmHg (35.0-45.0) L 07/25/17 15:33 ABG pO2 107.0 mmHg (80.0-100.0) H 07/25/17 15:33 ABG HCO3 22.1 mmol/L (22-26) 07/25/17 15:33 ABG O2 Saturation 98.0 % (90-100) 07/25/17 15:33 ABG Base Excess -1.8 mmol/L (-2.0-2.0) 07/25/17 15:33 Figueroa Test N/a 07/25/17 15:33 A-a Gradient 50.0 mmHg 07/25/17 15:33 FiO2 28.000 07/25/17 15:33 Blood Gas Comments Pt [facility] 07/25/17 15:33 Sodium 126 mmol/L (136-145) L 07/28/17 04:40 Corrected Sodium TNP 07/28/17 04:40 Potassium 3.9 mmol/L (3.5-5.1) 07/28/17 04:40 Chloride 89 mmol/L (98-107) L 07/28/17 04:40 Carbon Dioxide 30.7 mmol/L (21-32) 07/28/17 04:40 BUN 22 mg/dL (7-18) H 07/28/17 04:40 Creatinine 1.40 mg/dL (0.55-1.02) H 07/28/17 04:40 Est GFR (MDRD) Af Amer 46 (>60) L 07/28/17 04:40 Est GFR (MDRD) Non-Af 38 (>60) L 07/28/17 04:40 Glucose 98 mg/dL (65-99) 07/28/17 04:40 Lactic Acid 0.8 mmol/L (0.4-2.0) 07/25/17 17:34 Calcium 8.9 mg/dL (8.5-10.1) 07/28/17 04:40 Corrected Calcium 9.6 mg/dL (8.5-10.1) 07/28/17 04:40 Magnesium 1.9 mg/dL (1.7-2.9) 07/25/17 15:25 Total Bilirubin 1.00 mg/dL (0.2-1.0) 07/28/17 04:40 AST 22 Units/L (15-37) 07/28/17 04:40 ALT 23 Units/L (12-78) 07/28/17 04:40 Alkaline Phosphatase 58 Units/L (46-116) 07/28/17 04:40 Creatine Kinase 49 Units/L (26-192) 07/26/17 10:43 CK-MB (CK-2) 1.2 ng/mL (0-4.0) 07/26/17 10:43 CK/CKMB % Calc 2.5 % (<4) 07/26/17 10:43 Troponin I < 0.02 ng/mL (0-1.5) 07/26/17 10:43 Total Protein 6.5 g/dL (6.4-8.2) 07/28/17 04:40 Albumin 3.1 g/dL (3.4-5.0) L 07/28/17 04:40 Globulin 3.4 g/dL (2.5-4.5) 07/28/17 04:40 Albumin/Globulin Ratio 0.9 Ratio (1.1-2.1) L 07/28/17 04:40 Specimen Type Clean catch urine 07/26/17 14:55 Urine Color Pale yellow (YELLOW) 07/26/17 14:55 Urine Appearance Clear (CLEAR) 07/26/17 14:55 Urine pH 6.0 (5.0 - 8.0) 07/26/17 14:55 Ur Specific [place] 1.010 (1.000-1.030) 07/26/17 14:55 Urine Protein Negative (NEGATIVE) 07/26/17 14:55 Urine Glucose (UA) Negative (NEGATIVE) 07/26/17 14:55 Urine Ketones Negative (NEGATIVE) 07/26/17 14:55 Urine Occult Blood Negative (NEGATIVE) 07/26/17 14:55 Urine Nitrite Negative (NEGATIVE) 07/26/17 14:55 Urine Bilirubin Negative (NEGATIVE) 07/26/17 14:55 Urine Urobilinogen Normal (NORMAL) 07/26/17 14:55 Ur Leukocyte Esterase Negative (NEGATIVE) 07/26/17 14:55 - Plan (1) Pneumonia Status: Acute Qualifiers: Pneumonia type: due to unspecified organism Laterality: left Lung location: lower lobe of lung Qualified Code(s): J18.1 - Lobar pneumonia, unspecified organism Plan: PNEUMONIA PROTOCOL, LEVAQUIN IV, FORTAZ IV, SUPPLEMENTAL OXYGEN, RESPIRATORY TREATMENTS, CONTINUE TO MONITOR (2) Dyspnea Status: Acute Qualifiers: Dyspnea type: shortness of breath Qualified Code(s): R06.02 - Shortness of breath; R06.00 - Dyspnea, unspecified; R06.01 - Orthopnea (3) Hyponatremia Status: Acute Plan: CONTINUE TO MONITOR
[2017-07-28] MEDS ORDERED: LEVAQUIN TAB 750 MG PO ONE (20:31)
--- NOTE | 2017-08-21 00:53 | DR.CARTERD ---
- Discharge Summary for: Discharge Summary for Date of:: 07/28/17 - Admission Date Date of Admission: 07/25/17 - Admission Diagnoses Admission Diagnosis: (1) Pneumonia (2) Dyspnea (3) Hyponatremia - Discharge Date Discharge Date: 07/28/17 - Discharge Diagnoses Discharge Diagnosis: (1) Pneumonia (2) Dyspnea (3) Hyponatremia - Hospital Course Hospital Course: DAY ONE, MS. RENE IS A 87 YEAR OLD PATIENT OF OURS WHO PRESENTED TO THE EMERGENCY ROOM WITH COMPLAINTS OF SHORTNESS OF BREATH. SHE DENIED CHEST PAIN AT THE TIME. PATIENT REPORTED THAT SHE HAD A DEFIBRILLATOR, BUT DENIED IT GOING OFF. SHE ALSO REPORTED WEAKNESS FOR THE PAST TWO DAYS. ON ARRIVAL, VITALS WERE 98.1-88-22-94%RA-139/86. LABS WERE OBTAINED. ABNORMAL LAB VALUES INCLUDED THE FOLLOWING: INR 1.68, SODIUM 127, CHLORIDE 94, BUN 21, CREATININE 1.14, GLUCOSE 129, TOTAL PROTEIN 1.10, AST 41. AN ABG WAS OBTAINED AND REVEALED PH 7.420, PC02 34.0, P02 107.0, HC03 22.1, 02 SATURATION 98.0. EKG REVEALED ATRIAL FIBRILLATION WITH HR 86. CHEST XRAY REVEALED MARKEDLY ENLARGED CARDIAC SILHUETTE. INCREASED INTERSTITIAL MARKINGS SEEN IN THE LUNGS BILATERALLY, WITH CONFLUENT OPACITIES SEEN IN THE LEFT MID AND LOWER LUNG ZONES, OBSCURING VISUALIZATION OF THE LEFT HEMIDIAPHRAGM AND LEFT COSTOPHRENIC ANGLE. FINDINGS COULD BE DUE TO PULMONARY EDEMA AND.OR PNEUMONIA, WITH A POSSIBLE ASSOCIATED SMALL LEFT SIDED PLEURAL EFFUSION. SHE WAS ADMITTED TO THE HOSPITAL FOR FURTHER EVALUATION AND TREATMENT. SHE WAS STARTED ON DUONEBS, NORMAL SALINE AT 100ML/HR , LEVAQUIN IV, AND FORTAZ IV. WE CONTINUED TO MONITOR PATIENT. DAY TWO, CONTINUED TREATMENT FOR LLL PNEUMONIA, HYPONATREMIA, AND DYSPNEA. SHE WAS ALERT AND ORIENTED, LYING IN BED ON MORNING ROUNDS. SHE CONTINUED WITH COMPLAINTS OF A NON-PRODUCTIVE COUGH AND SHORTNESS OF BREATH. ON EXAMINATION, HEART WAS REGULAR IN RATE AND RHYTHM. BILATERAL LUNGS WERE NOTED WITH DIMINISHED LUNG SOUNDS THROUGHOUT. SHE CONTINUED ON OXYGEN VIA NASAL CANNULA AT 2L/MIN. ABDOMEN WAS ROUND, SOFT, AND NON-TENDER WITH NORMAL BOWEL SOUNDS NOTED IN ALL QUADRANTS. HER VITALS WERE 98.6-89-20-97%-132/73. LABS WERE OBTAINED. ABNORMAL LAB VALUES INCLUDED THE FOLLOWING: SODIUM 131, CHLORIDE 97, BUN 25, CREATININE 1.21, TOTAL PROTEIN 5.9, ALBUMIN 2.9. CARDIAC ENZYMES AND EKS WITHIN NORMAL LIMITS. HER CHEST XRAY REVEALED CARDIOMEGALY WITHOUT CHF. SUBSEGMENTAL ATELECTASIS LEFT MID LUNG. SMALL LEFT PLEURAL EFFUSION. WE CONTINUED WITH IV ANTIBIOTICS, RESPIRATORY TREATMENTS, AND SUPPLEMENTAL OXYGEN. WE DISCONTINUED IV FLUIDS AND CONTINUED TO MONITOR PATIENT. DAY THREE, PATIENT WAS ALERT AND ORIENTED, LYING IN BED ON MORNING ROUNDS. SHE CONTINUED WITH COMPLAINTS OF A NON-PRODUCTIVE COUGH AND SHORTNESS OF BREATH, SLIGHTLY IMPROVED SINCE THE DAY BEFORE. ON EXAMINATION, HEART WAS REGULAR IN RATE AND RHYTHM. BILATERAL LUNGS WERE NOTED WITH DIMINISHED LUNG SOUNDS THROUGHOUT. SHE CONTINUED ON OXYGEN VIA NASAL CANNULA AT 2L/MIN. ABDOMEN WAS ROUND, SOFT, AND NON-TENDER WITH NORMAL BOWEL SOUNDS NOTED IN ALL QUADRANTS. HER VITALS WERE 97.8-102-20-95%-136/61. LABS WERE OBTAINED. ABNORMAL LAB VALUES INCLUDED THE FOLLOWING: SODIUM 127, CHLORIDE 91, BUN 27, CREATININE 1.39, GLUCOSE 100. CARDIAC ENZYMES AND EKGS WITHIN NORMAL LIMITS. WE CONTINUED WITH IV ANTIBIOTICS, RESPIRATORY TREATMENTS, AND SUPPLEMENTAL OXYGEN. DAY FOUR, PATIENT REPORTED SHE WAS FEELING BETTER. NO ACUTE DISTRESS WAS NOTED. SHE DENIED SHORTNESS OF BREATH. PATIENT REPORTED SYMPTOMS HAD GREATLY IMPROVED WITH TREATMENT. ON AUSCULTATION, LUNGS WERE NOTED WITH SCATTERED RHONCHI TO UPPER LOBES. COUGH WAS INTERMITTENT. SPUTUM THIN. FINAL BLOOD AND SPUTUM CULTURES WERE NEGATIVE. VITAL SIGNS STABLE. LABS WNL. WE PLANNED FOR DISCHARGE. INSTRUCTIONS FOR MEDICATIONS AND FOLLOW UP WERE DISCUSSED WITH PATIENT AND FAMILY, BOTH VOICED UNDERSTANDING. PATIENT DISCHARGED HOME IN STABLE CONDITION WITH FAMILY. - Discharge Medications Discharge Medications: Home Medication List carvedilol 1 tab PO BID 07/25/17 [History] pantoprazole [Protonix] 1 tab PO DAILY 07/25/17 [History] potassium chloride 2 tab PO DAILY 07/25/17 [History] rivaroxaban 1 tab PO DAILY 07/25/17 [History] sacubitril-valsartan 0.5 tab PO BID 07/25/17 [History] ipratropium-albuterol 1 ea NEB TID #50 ml 07/28/17 [Rx] simethicone [Gas-X Extra Strength] 125 mg PO QID #20 cap 07/28/17 [Rx] Prescriptions: ipratropium-albuterol Alexander Valenzuela simethicone [Gas-X Extra Strength] Alexander Valenzuela Home medications alprazolam [Xanax] 1 tab PO HS PRN 07/31/17 triamterene-hydrochlorothiazid [Dyazide] 1 cap PO QAM #30 cap 08/02/17 - Discharge Disposition Discharge Disposition: PATIENT IS TO FOLLOW UP IN OUR OFFICE IN ONE WEEK.
== END 2017-07-28 10:30 | disposition home or self-care (01) | DRG 194 ==
LOC: ER 15:18 → MED/SURG 18:04
PROVIDERS: ADMIT Obstetrics & Gynecology Obstetrics; ATTEND Internal Medicine
DX: J90 Pleural effusion, not elsewhere classified; R94.31 Abnormal electrocardiogram [ECG] [EKG]; I10 Essential (primary) hypertension; K21.9 Gastro-esophageal reflux disease without esophagitis; R79.1 Abnormal coagulation profile; J18.8 Other pneumonia, unspecified organism; R06.02 Shortness of breath; Z95.810 Presence of automatic (implantable) cardiac defibrillator; I48.91 Unspecified atrial fibrillation; E87.1 Hypo-osmolality and hyponatremia
CPT/HCPCS: 36415; 36600; 71010; 71020; 71045; 71046; 80048; 80053; 81003; 82550; 82553; 82803; 83605; 83735; 84484; 85025; 85378; 85610; 87040; 87070; 87205; 93005; 94640; 94760; 96365; 99284; A4222; Q0177; J0696; J1956; J3490; J7030; J7131; J7620

== ENCOUNTER 2017-07-31 01:00 | Observation (INO) ==
[2017-07-31 01:11] VITALS: BMI 21.4
--- NOTE | 2017-07-31 02:51 | DR.GENAD ---
HPI - PCP Primary Care Physician: YOLY - HPI Comment HPI Comment: D/C FROM HOSPITAL FRIDAY BUT CONTINUE TO FEEL SICK. BP LOW IN ED. - Complaint/Symptoms Chief Complaint Doctors Comments: ABDOMINAL PAIN, MALAISE AND WEAKNESS. 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 - Nurses notes reviewed Nurses Notes Review: Yes - Source History Provided: Patient, Family Member - Mode of Arrival Mode of Arrival: Wheelchair - Timing Onset of Chief Complaint: 07/31/17 Came on: Suddenly - Duration Duration: Since Onset Duration: Hours - Severity Severity: Moderate PMH - PMH Past Medical History: Yes Past Medical History: Anemia, CHF, GERD, Headaches, Hypertension Past Surgical History: Yes Surgical History: Appendectomy, Cholecystectomy - Family History History of Family Medical Conditions: Yes Family Medical History: Diabetes Mellitus, Cancer, [place], Coronary Artery Disease, Hypertension - Social History Does patient currently use any type of tobacco product: No Have you used tobacco products in the last 12 months: No Type of Tobacco Use: None Does any household member use tobacco: No Alcohol Use: None Do you use any recreational Drugs:: No Lives With: Spouse Lives Where: Home - infectious screening In the last 2 months have you had wt loss of >10#?: NO Have you had fever, night sweats or hemotysis?: No Have you traveled outside the country in the last 6 months?: No Isolation: Standard ROS - Review of Systems Constitutional: Weakness, Fatigue. negative: Chills, Fever Eyes: No Symptoms Reported. negative: Eye Pain, Discharge ENTM: negative: Ear Pain, Nose Discharge, Nose Congestion, Throat Pain Respiratoy: Short of Breath (ON EXERTION.). negative: Productive Cough, Non- Productive Cough, Wheezing, Hemoptysis Cardiovascular: Chest Pain Gastrointestinal/Abdominal: Abdominal Pain Genitourinary: negative: Dysuria, Hematuria Neurological: Weakness, Dizziness Musculoskeletal: Muscle Pain Integumentary: Dryness Hematologic/Lymphatic: Easy Bleeding, Easy Bruising Endocrine: No Symptoms Reported All Other Systems: Reviewed and Negative PE - General Limitations: No Limitations General Appearance: Alert - Head Head Exam: Normal Inspection - Eyes Eye exam: PERRL, EOMI. negative: Scleral Icterus, Conjunctival Injection - ENT ENT Exam: Normal Oropharynx, Normal External Ear Exam, TM's Normal Bilaterally External Ear Exam: Normal External Inspection TM/Canal Exam: Bilateral Normal Nose Exam: Normal Nose Exam Mouth Exam: Normal Inspection Throat Exam: Normal Inspection - Neck Neck Exam: Trachea Midline - Chest Chest Inspection: Symmetric Chest Wall Rise - Respiratory Respiratory Exam: Normal Lung Sounds Bilat Respiratory Exam: Bilateral Rhonchi, Lower Rhonchi - Cardiovascular Cardiovascular Exam: Regular Rate, Normal Rhythm - Abdominal Exam Abdominal Exam: Normal Bowel Sounds, Soft. negative: Tenderness - Extremities Extremities Exam: Edema (TRACE) - Back Back Exam: Paraspinal Tenderness - Neurologic Neurological Exam: Alert, Oriented X3 - Psychiatric Psychiatric Exam: Normal Affect, Normal Mood - Skin Skin Exam: Erythema - Vital Signs Vitals: Temperature 97.1 F Pulse Rate 87 Respiratory Rate 20 Blood Pressure [Left Arm] 131/66 Blood Pressure [Right Arm] 125/59 Blood Pressure 97/50 [facility] - Additional Information Additional Information Obtained From: Family - Differential Diagnosis Differential Diagnosis: CHEST PAIN, ABDOMINAL PAIN, HYPOTENSION, [place], PNEUMONIA Course - Treatment Treatment: SEE ORDERS. - Consultation Consultation Comments: DISCUSS PATIENT WITH DR. LEE. HE WILL ADMIT PATIENT. - Education/Counseling Education/Counseling: Patient, Family, Education Educated On: Diagnosis ROR - Labs Reviewed Laboratory Results Reviewed?: Yes Result Diagrams: 08/02/17 06:10 08/02/17 06:10 - XRAY XRAY Interpreted by: Radiologist XRAY Findings: REPORT DISCUSS WITH PATIENT. - EKG Rhythm: Afib (EKG NOTED) - Labs Reviewed Laboratory: WBC 10.6 X10^3/uL (3.6-10.0) H 07/31/17 03:31 RBC 4.44 X10^6/uL (3.5-5.4) 07/31/17 03:31 Hgb 12.8 g/dL (12.0-16.0) 07/31/17 03:31 Hct 37.6 % (36.0-47.0) 07/31/17 03:31 MCV 84.7 fL (80.0-100.0) 07/31/17 03:31 MCH 28.8 pg (27.0-34.0) 07/31/17 03:31 MCHC 34.0 g/dL (33.0-35.0) 07/31/17 03:31 RDW 13.7 % (11.6-16.5) 07/31/17 03:31 Plt Count 181 X10^3/uL (150.0-450.0) 07/31/17 03:31 MPV 8.2 fL (7.4-11.0) 07/31/17 03:31 Neut % (Auto) 64.2 % (42.0-75.0) 07/31/17 03:31 Lymph % (Auto) 23.4 % (21.0-51.0) 07/31/17 03:31 [place] % (Auto) 9.5 % (0.0-13.0) 07/31/17 03:31 Eos % (Auto) 2.4 % (0.9-2.9) 07/31/17 03:31 Baso % (Auto) 0.5 % (0.2-1.0) 07/31/17 03:31 Neut # (Auto) 6.8 x10^3/uL (2.2-4.8) H 07/31/17 03:31 Lymph # (Auto) 2.5 X10^3/uL (1.3-2.9) 07/31/17 03:31 [place] # (Auto) 1.0 x10^3/uL (0.3-0.8) H 07/31/17 03:31 Eos # (Auto) 0.3 x10^3/uL (0.0-0.2) H 07/31/17 03:31 Baso # (Auto) 0.1 X10^3/uL (0.0-0.1) 07/31/17 03:31 Absolute Nucleated RBC 0.0 /100WBC 07/31/17 03:31 Sodium 128 mmol/L (136-145) L 07/31/17 03:31 Corrected Sodium TNP 07/31/17 03:31 Potassium 4.1 mmol/L (3.5-5.1) 07/31/17 03:31 Chloride 91 mmol/L (98-107) L 07/31/17 03:31 Carbon Dioxide 31.2 mmol/L (21-32) 07/31/17 03:31 BUN 35 mg/dL (7-18) H 07/31/17 03:31 Creatinine 2.04 mg/dL (0.55-1.02) H 07/31/17 03:31 Est GFR (MDRD) Af Amer 30 (>60) L 07/31/17 03:31 Est GFR (MDRD) Non-Af 24 (>60) L 07/31/17 03:31 Glucose 106 mg/dL (65-99) H 07/31/17 03:31 Calcium 9.5 mg/dL (8.5-10.1) 07/31/17 03:31 Corrected Calcium TNP 07/31/17 03:31 Total Bilirubin 1.30 mg/dL (0.2-1.0) H 07/31/17 03:31 AST 20 Units/L (15-37) 07/31/17 03:31 ALT 19 Units/L (12-78) 07/31/17 03:31 Alkaline Phosphatase 63 Units/L (46-116) 07/31/17 03:31 Creatine Kinase 68 Units/L (26-192) 07/31/17 03:31 CK-MB (CK-2) < 1.0 ng/mL (0-4.0) 07/31/17 03:31 CK/CKMB % Calc 1.5 % (<4) 07/31/17 03:31 Troponin I < 0.02 ng/mL (0-1.5) 07/31/17 03:31 Total Protein 6.8 g/dL (6.4-8.2) 07/31/17 03:31 Albumin 3.5 g/dL (3.4-5.0) 07/31/17 03:31 Globulin 3.3 g/dL (2.5-4.5) 07/31/17 03:31 Albumin/Globulin Ratio 1.1 Ratio (1.1-2.1) 07/31/17 03:31 Amylase 56 Units/L (25-115) 07/31/17 03:31 Lipase 117 Units/L (73-393) 07/31/17 03:31 - Diagnosis Discharge Problem: Hyponatremia, Dehydration, Chest pain, Abdominal pain Hypotension Qualifiers: Hypotension type: unspecified hypotension type Qualified Code(s): I95.9 - Hypotension, unspecified - Discharge Plan Disposition: ADMITTED INPATIENT Condition: Stable
[2017-07-31] MEDS ORDERED: NS 1000 ML 1,000 ML IV ONE (03:09)
[2017-07-31 03:41] LABS: BASOPHILS # (AUTO) 0.1 X10^3/uL (0.0-0.1); BASOPHILS % (AUTO) 0.5 % (0.2-1.0); EOSINOPHILS # (AUTO) 0.3 x10^3/uL (0.0-0.2); EOSINOPHILS % (AUTO) 2.4 % (0.9-2.9); HEMATOCRIT 37.6 % (36.0-47.0); HEMOGLOBIN 12.8 g/dL (12.0-16.0); LYMPHOCYTES # (AUTO) 2.5 X10^3/uL (1.3-2.9); LYMPHOCYTES % (AUTO) 23.4 % (21.0-51.0); MEAN CORPUSCULAR HEMOGLOBIN 28.8 pg (27.0-34.0); MEAN CORPUSCULAR VOLUME 84.7 fL (80.0-100.0); MEAN PLATELET VOLUME 8.2 fL (7.4-11.0); MONOCYTES % (AUTO) 9.5 % (0.0-13.0); NEUTROPHILS # (AUTO) 6.8 x10^3/uL (2.2-4.8); NEUTROPHILS % (AUTO) 64.2 % (42.0-75.0); PLATELET COUNT 181 X10^3/uL (150.0-450.0); RED BLOOD COUNT 4.44 X10^6/uL (3.5-5.4); RED CELL DISTRIBUTION WIDTH 13.7 % (11.6-16.5); WHITE BLOOD COUNT 10.6 X10^3/uL (3.6-10.0)
--- NOTE | 2017-07-31 03:49 | RAD ---
Chest, one view Indication: Chest pain Comparison: 07/26/2017 Findings: There is stable cardiomegaly without congestive failure. Right-sided pacing device is uncha nged. There is a persistent trace left pleural effusion and unchanged atelectasis within the mid left lung. The remainder of the lungs are clear. No pneumothorax identified. Impression: Persistent small left pleural effusion and atelectasis of the mid left lung. Reported By:
[2017-07-31 03:50] LABS: ALANINE AMINOTRANSFERASE 19 Units/L (12-78); ALBUMIN 3.5 g/dL (3.4-5.0); ALKALINE PHOSPHATASE 63 Units/L (46-116); AMYLASE 56 Units/L (25-115); ASPARTATE AMINO TRANSFERASE 20 Units/L (15-37); BLOOD UREA NITROGEN 35 mg/dL (7-18); CALCIUM 9.5 mg/dL (8.5-10.1); CARBON DIOXIDE 31.2 mmol/L (21-32); CHLORIDE 91 mmol/L (98-107); CREATININE 2.04 mg/dL (0.55-1.02); LIPASE 117 Units/L (73-393); SODIUM 128 mmol/L (136-145); TOTAL PROTEIN 6.8 g/dL (6.4-8.2); eGFR NON BLACK RACES 24 (>60)
[2017-07-31 04:38] LABS: CKMB % 1.5 % (<4); CREATINE KINASE 68 Units/L (26-192); CREATINE KINASE MB < 1.0 ng/mL (0-4.0); TROPONIN I < 0.02 ng/mL (0-1.5)
[2017-07-31] MEDS ORDERED: NS 1000 ML 1,000 ML ONE (05:16)
[2017-07-31] MEDS: NS 1000 ML 1,000 ML IV SCH ×4 (05:36→22:46)
--- NOTE | 2017-07-31 08:43 | DR.H&P ---
H&P - History & Physical for Day of: H&P Date: 07/31/17 - Chief Complaint Chief Complaint: weakness, abdominal pain, short of breath - History of Present Illness History of Present Illness: is a 87 year old patient of ours who presented to the emergency room with reports of "feeling bad" and abdominal pain. Patient states she was released from the hospital on Friday and has continued feeling bad since discharge. Associated symptoms include weakness, fatigue, shortness of breath, dizziness, and muscle pain. on arrival, vitals were 97.1, 87, 20, 100% RA, 97/50. Labs were obtained. Abnormal Labs include the following: WBC 10.6, Sodium 128, Chloride 91, BUN 35, Creatinine 2.04, GFR af 30, GFR non 24, Glucose 106, Total Bilirubin 1.30. Cardiac enzymes within normal limits. Chest X-Ray revealed: Persistent small left pleural effusion and atelectasis of the mid left lung. EKG revealed: Atrial Fibrillation. Rate=78. She was started on Normal saline at 75ml/hr. Patient admitted to the hospital as observation and started on IV fluids for gentle hydration. Will follow up with labs in the morning and continue to monitor patient. - Past Medical History Past Medical History: Anemia, CHF, GERD, Headaches, Hypertension - Past Surgical History Surgical History: Appendectomy, Cholecystectomy - Family History Family Medical History: Diabetes Mellitus, Cancer, [place], Hypertension - Social History Does patient currently use any type of tobacco product: No Have you used tobacco products in the last 12 months: No Type of Tobacco Use: None Does any household member use tobacco: No Alcohol Use: None Drug Use: None - Medications Home Medications: Sulfa (Sulfonamide Antibiotics) [SULFA] Allergy (Verified 07/31/17 07:04) - Review of Systems Constitutional: See HPI, Weakness, Malaise, Other (dizziness ) Eyes: No Symptoms Reported ENT: No Symptoms Reported Respiratory: Cough, Shortness of Breath. denies: Sputum, Wheezing Cardiovascular: Light Headedness Gastrointestinal: Abdominal Pain Genitourinary: No Symptoms Reported Musculoskeletal: Other (generalized muscle pain ) Skin: No Symptoms Reported Neurological: Weakness, Other (dizziness ) - Physical Exam Vital Signs: Temperature 98.3 F Pulse Rate [Left Brachial] 86 Pulse Rate 87 Respiratory Rate 20 Blood Pressure [Left Arm] 131/63 Blood Pressure [Right Arm] 125/59 Blood Pressure 97/50 O2 Sat by Pulse Oximetry 98 Oriented: Normal Eyes: Normal Ear: Normal Nose: Normal Throat: Normal Respiratory: Diminished Throughout Cardiovascular: Normal. negative: S3, S4, Murmur, Edema : Normal Auscultation: Bowel Sounds: Normal Palpation: Normal Tenderness: Diffuse, Mild (cramping ). negative: Rebound, Guarding, Rigidity Skin: Decreased [place] Musculoskeletal: Normal Psychiatric: Normal Mood Description: Calm Affect: Normal Speech Pattern: Clear - Assessment/Plan (1) Dehydration Status: Acute Plan: admit, normal saline at 75ml/hr, continue to monitor (2) Hyponatremia Status: Acute Plan: normal saline at 75ml/hr, continue to monitor (3) Hypotension Qualifiers: Hypotension type: unspecified hypotension type Qualified Code(s): I95.9 - Hypotension, unspecified Status: Acute - Allergies Allergies/Adverse Reactions: Allergies Allergy/AdvReac Type Severity Reaction Status Date / Time Sulfa (Sulfonamide Allergy Verified 07/31/17 07:04 Antibiotics) [SULFA]
[2017-07-31] MEDS ORDERED: SIMETHICONE 125 MG PO SCH (09:00)
[2017-07-31] MEDS ORDERED: PHARMACY CONSULT - DOSE _____ XX SCH (09:00)
[2017-07-31 10:17] LABS: CKMB % 1.6 % (<4); CREATINE KINASE 62 Units/L (26-192); CREATINE KINASE MB < 1.0 ng/mL (0-4.0); TROPONIN I < 0.02 ng/mL (0-1.5)
[2017-07-31] MEDS: DUONEB 0.5 MG/3 MG NEB SCH ×3 (10:18→21:57)
[2017-07-31] MEDS: PROTONIX TAB 40 MG PO SCH (10:19)
[2017-07-31] MEDS: MEGACE PO SCH ×2 (10:20→20:15)
[2017-07-31] MEDS: XARELTO PO SCH (10:20)
[2017-07-31] MEDS: MYLICON TAB 80 MG CHEW PO SCH ×3 (12:11→20:16)
[2017-07-31 12:27] LABS: BILIRUBIN,URINE NEGATIVE (NEGATIVE); BLOOD/HEMOGLOBIN,URINE NEGATIVE (NEGATIVE); GLUCOSE, URINE NEGATIVE (NEGATIVE); KETONES,URINE NEGATIVE (NEGATIVE); LEUKOCYTE ESTERASE ,URINE NEGATIVE (NEGATIVE); NITRITES,URINE NEGATIVE (NEGATIVE); PROTEIN,URINE NEGATIVE (NEGATIVE); UROBILINOGEN,URINE NORMAL (NORMAL)
[2017-07-31 12:29] LABS: APPEARANCE,URINE CLEAR (CLEAR); COLOR,URINE YELLOW (YELLOW)
[2017-07-31 17:08] LABS: CREATINE KINASE 51 Units/L (26-192); CREATINE KINASE MB < 1.0 ng/mL (0-4.0); TROPONIN I < 0.02 ng/mL (0-1.5)
[2017-07-31] MEDS: XANAX PO PRN (20:33)
[2017-08-01] MEDS ORDERED: DUONEB 0.5 MG/3 MG ONE ×2 (05:14→13:22)
[2017-08-01] MEDS: NS 1000 ML 1,000 ML IV SCH ×2 (05:20→18:29)
[2017-08-01] MEDS ORDERED: NS 1000 ML 1,000 ML ONE (05:20)
[2017-08-01] MEDS: DUONEB 0.5 MG/3 MG NEB SCH ×3 (05:25→21:52)
[2017-08-01 06:09] LABS: BASOPHILS # (AUTO) 0.1 X10^3/uL (0.0-0.1); BASOPHILS % (AUTO) 0.7 % (0.2-1.0); EOSINOPHILS # (AUTO) 0.4 x10^3/uL (0.0-0.2); EOSINOPHILS % (AUTO) 3.6 % (0.9-2.9); HEMATOCRIT 35.8 % (36.0-47.0); HEMOGLOBIN 12.3 g/dL (12.0-16.0); LYMPHOCYTES # (AUTO) 2.9 X10^3/uL (1.3-2.9); LYMPHOCYTES % (AUTO) 28.3 % (21.0-51.0); MEAN CORPUSCULAR HGB CONC 34.4 g/dL (33.0-35.0); MEAN CORPUSCULAR VOLUME 84.1 fL (80.0-100.0); MEAN PLATELET VOLUME 8.4 fL (7.4-11.0); MONOCYTES # (AUTO) 1.4 x10^3/uL (0.3-0.8); MONOCYTES % (AUTO) 13.4 % (0.0-13.0); NEUTROPHILS # (AUTO) 5.6 x10^3/uL (2.2-4.8); PLATELET COUNT 178 X10^3/uL (150.0-450.0); RED BLOOD COUNT 4.26 X10^6/uL (3.5-5.4); RED CELL DISTRIBUTION WIDTH 13.6 % (11.6-16.5); WHITE BLOOD COUNT 10.3 X10^3/uL (3.6-10.0)
[2017-08-01 06:21] LABS: ALANINE AMINOTRANSFERASE 16 Units/L (12-78); ALBUMIN 2.9 g/dL (3.4-5.0); ALKALINE PHOSPHATASE 54 Units/L (46-116); ASPARTATE AMINO TRANSFERASE 19 Units/L (15-37); BLOOD UREA NITROGEN 23 mg/dL (7-18); CALCIUM 8.6 mg/dL (8.5-10.1); CARBON DIOXIDE 25.6 mmol/L (21-32); CHLORIDE 96 mmol/L (98-107); COR CA(FOR HYPOALB) 9.5 mg/dL (8.5-10.1); CREATININE 1.22 mg/dL (0.55-1.02); MAGNESIUM 1.8 mg/dL (1.7-2.9); SODIUM 129 mmol/L (136-145); TOTAL PROTEIN 5.8 g/dL (6.4-8.2); eGFR NON BLACK RACES 44 (>60)
[2017-08-01 06:35] LABS: B-TYPE NATRIURETIC PEPTIDE 423 pg/mL (0-79)
[2017-08-01] MEDS: MEGACE PO SCH ×2 (08:41→20:18)
[2017-08-01] MEDS: PROTONIX TAB 40 MG PO SCH (08:42)
[2017-08-01] MEDS: MYLICON TAB 80 MG CHEW PO SCH ×4 (08:42→20:18)
[2017-08-01] MEDS: XARELTO PO SCH (08:42)
[2017-08-01] MEDS ORDERED: MYLICON TAB 80 MG CHEW PO ONE (20:10)
[2017-08-01] MEDS: XANAX PO PRN (20:18)
[2017-08-01] MEDS ORDERED: COLACE CAP 100 MG PO SCH (21:00)
[2017-08-02] MEDS: NS 1000 ML 1,000 ML IV SCH ×2 (04:30→05:24)
[2017-08-02] MEDS ORDERED: NS 1000 ML 1,000 ML ONE (05:22)
[2017-08-02] MEDS: DUONEB 0.5 MG/3 MG NEB SCH (05:47)
[2017-08-02 07:03] LABS: BASOPHILS # (AUTO) 0.1 X10^3/uL (0.0-0.1); BASOPHILS % (AUTO) 0.9 % (0.2-1.0); EOSINOPHILS # (AUTO) 0.3 x10^3/uL (0.0-0.2); HEMATOCRIT 34.1 % (36.0-47.0); HEMOGLOBIN 11.5 g/dL (12.0-16.0); LYMPHOCYTES # (AUTO) 2.4 X10^3/uL (1.3-2.9); LYMPHOCYTES % (AUTO) 30.7 % (21.0-51.0); MEAN CORPUSCULAR HEMOGLOBIN 28.7 pg (27.0-34.0); MEAN CORPUSCULAR HGB CONC 33.8 g/dL (33.0-35.0); MEAN CORPUSCULAR VOLUME 84.9 fL (80.0-100.0); MEAN PLATELET VOLUME 8.7 fL (7.4-11.0); MONOCYTES # (AUTO) 1.3 x10^3/uL (0.3-0.8); MONOCYTES % (AUTO) 16.2 % (0.0-13.0); NEUTROPHILS # (AUTO) 3.8 x10^3/uL (2.2-4.8); NEUTROPHILS % (AUTO) 48.2 % (42.0-75.0); PLATELET COUNT 147 X10^3/uL (150.0-450.0); RED BLOOD COUNT 4.01 X10^6/uL (3.5-5.4); RED CELL DISTRIBUTION WIDTH 13.7 % (11.6-16.5); WHITE BLOOD COUNT 7.9 X10^3/uL (3.6-10.0)
[2017-08-02] MEDS: MYLICON TAB 80 MG CHEW PO SCH (08:05)
[2017-08-02] MEDS: MEGACE PO SCH (08:05)
[2017-08-02] MEDS: XARELTO PO SCH (08:05)
[2017-08-02] MEDS: PROTONIX TAB 40 MG PO SCH (08:05)
[2017-08-02 08:10] LABS: ALANINE AMINOTRANSFERASE 12 Units/L (12-78); ALBUMIN 2.4 g/dL (3.4-5.0); ALKALINE PHOSPHATASE 48 Units/L (46-116); ASPARTATE AMINO TRANSFERASE 18 Units/L (15-37); BLOOD UREA NITROGEN 14 mg/dL (7-18); CALCIUM 8.2 mg/dL (8.5-10.1); CARBON DIOXIDE 24.4 mmol/L (21-32); CHLORIDE 103 mmol/L (98-107); COR CA(FOR HYPOALB) 9.5 mg/dL (8.5-10.1); CREATININE 0.95 mg/dL (0.55-1.02); SODIUM 134 mmol/L (136-145); TOTAL PROTEIN 5.2 g/dL (6.4-8.2); eGFR NON BLACK RACES 59 (>60)
[2017-08-02 08:52] VITALS: BP 153/70
[2017-08-02] MEDS ORDERED: DUONEB 0.5 MG/3 MG ONE (13:11)
--- NOTE | 2017-08-02 15:10 | PCM.PROG ---
Progress Note - Progress Note for Day of Date: 08/01/17 - Subjective Subjective: WAS ADMITTED FOR DEYDRATION, HYPOTENSION, AND HYPONATREMIA. TODAY, SHE IS ALERT AND ORIENTED, LYING IN BED ON MORINING ROUNDS. TODAY, SHE IS NOTED WITH COMPLAINTS OF GENERALIZED WEAKNESS. ON EXAMINATION, HEART IS REGULAR IN RATE AND RHYTHM. BILATERAL LUNGS ARE CLEAR TO AUSCULTATION. ABDOMEN IS ROUND, SOFT, AND NON-TENDER WITH NORMAL BOWEL SOUNDS NOTED IN ALL QUADRANTS. HER VITALS TODAY ARE 97.8-82-17-100%-123/59. LABS WERE OBTAINED. ABNORMAL LAB VALUES INCLUDE THE FOLLOWING: WBC 10.3, HCT 35.8, SODIUM 129, CHLORIDE 96, BUN 23, CREATININE 1.22, BNP 423, TOTAL PROTEIN 5.8, ALBUMIN 2.9. CARDIAC ENZYMES AND EKGS WITHIN NORMAL LIMITS. TODAY, WE WILL CONTINUE WITH IV FLUIDS AND CURRENT PLAN OF CARE. OTHERWISE, WE WILL FOLLOW UP WITH AM LABS AND CONTINUE TO MONITOR PATIENT. - Past Medical Family Social History Past Med/Fam/Surg Hx: No changes since H&P Allergies: Allergies Sulfa (Sulfonamide Antibiotics) [SULFA] Allergy (Verified 07/31/17 07:04) - Review of Systems ROS: No change since H&P - Vital Signs and I&O's Vital Signs: Temperature 98 F Pulse Rate [Left Brachial] 84 Pulse Rate 80 Respiratory Rate 18 Blood Pressure [Left Arm] 153/70 Blood Pressure [Right Arm] 125/59 Blood Pressure 97/50 O2 Sat by Pulse Oximetry 99 Intake and Output: Intake & Output 07/31/17 08/01/17 08/02/17 08/03/17 11:59 11:59 11:59 11:59 Intake Total 2640 / 2640 3400 / 3400 Output Total 700 / 700 Balance 2640 / 2640 2700 / 2700 - Physical Exam Oriented: Normal Eyes: Normal Ear: Normal Nose: Normal Throat: Normal Respiratory: Normal Cardiovascular: Normal. negative: S3, S4, Murmur, Edema : Normal Auscultation: Bowel Sounds: Normal Palpation: Normal Tenderness: Diffuse, Mild (cramping ). negative: Rebound, Guarding, Rigidity Skin: Decreased [place] Musculoskeletal: Normal Psychiatric: Normal Mood Description: Calm Affect: Normal Speech Pattern: Clear - Laboratory and Diagnostics Result Diagrams: 08/02/17 06:10 08/02/17 06:10 Labs: Laboratory WBC 7.9 X10^3/uL (3.6-10.0) 08/02/17 06:10 RBC 4.01 X10^6/uL (3.5-5.4) 08/02/17 06:10 Hgb 11.5 g/dL (12.0-16.0) L 08/02/17 06:10 Hct 34.1 % (36.0-47.0) L 08/02/17 06:10 MCV 84.9 fL (80.0-100.0) 08/02/17 06:10 MCH 28.7 pg (27.0-34.0) 08/02/17 06:10 MCHC 33.8 g/dL (33.0-35.0) 08/02/17 06:10 RDW 13.7 % (11.6-16.5) 08/02/17 06:10 Plt Count 147 X10^3/uL (150.0-450.0) L 08/02/17 06:10 MPV 8.7 fL (7.4-11.0) 08/02/17 06:10 Neut % (Auto) 48.2 % (42.0-75.0) 08/02/17 06:10 Lymph % (Auto) 30.7 % (21.0-51.0) 08/02/17 06:10 [place] % (Auto) 16.2 % (0.0-13.0) H 08/02/17 06:10 Eos % (Auto) 4.0 % (0.9-2.9) H 08/02/17 06:10 Baso % (Auto) 0.9 % (0.2-1.0) 08/02/17 06:10 Neut # (Auto) 3.8 x10^3/uL (2.2-4.8) 08/02/17 06:10 Lymph # (Auto) 2.4 X10^3/uL (1.3-2.9) 08/02/17 06:10 [place] # (Auto) 1.3 x10^3/uL (0.3-0.8) H 08/02/17 06:10 Eos # (Auto) 0.3 x10^3/uL (0.0-0.2) H 08/02/17 06:10 Baso # (Auto) 0.1 X10^3/uL (0.0-0.1) 08/02/17 06:10 Absolute Nucleated RBC 0.0 /100WBC 08/02/17 06:10 Sodium 134 mmol/L (136-145) L 08/02/17 06:10 Corrected Sodium TNP 08/02/17 06:10 Potassium 3.5 mmol/L (3.5-5.1) 08/02/17 06:10 Chloride 103 mmol/L (98-107) 08/02/17 06:10 Carbon Dioxide 24.4 mmol/L (21-32) 08/02/17 06:10 BUN 14 mg/dL (7-18) 08/02/17 06:10 Creatinine 0.95 mg/dL (0.55-1.02) 08/02/17 06:10 Est GFR (MDRD) Af Amer > 60 (>60) 08/02/17 06:10 Est GFR (MDRD) Non-Af 59 (>60) 08/02/17 06:10 Glucose 82 mg/dL (65-99) 08/02/17 06:10 Calcium 8.2 mg/dL (8.5-10.1) L 08/02/17 06:10 Corrected Calcium 9.5 mg/dL (8.5-10.1) 08/02/17 06:10 Magnesium 1.8 mg/dL (1.7-2.9) 08/01/17 05:29 Total Bilirubin 1.00 mg/dL (0.2-1.0) 08/02/17 06:10 AST 18 Units/L (15-37) 08/02/17 06:10 ALT 12 Units/L (12-78) 08/02/17 06:10 Alkaline Phosphatase 48 Units/L (46-116) 08/02/17 06:10 Creatine Kinase 51 Units/L (26-192) 07/31/17 16:24 CK-MB (CK-2) < 1.0 ng/mL (0-4.0) 07/31/17 16:24 CK/CKMB % Calc 2.0 % (<4) 07/31/17 16:24 Troponin I < 0.02 ng/mL (0-1.5) 07/31/17 16:24 B-Natriuretic Peptide 423 pg/mL (0-79) H 08/01/17 05:29 Total Protein 5.2 g/dL (6.4-8.2) L 08/02/17 06:10 Albumin 2.4 g/dL (3.4-5.0) L 08/02/17 06:10 Globulin 2.8 g/dL (2.5-4.5) 08/02/17 06:10 Albumin/Globulin Ratio 0.9 Ratio (1.1-2.1) L 08/02/17 06:10 Amylase 56 Units/L (25-115) 07/31/17 03:31 Lipase 117 Units/L (73-393) 07/31/17 03:31 Specimen Type Random urine 07/31/17 12:11 Urine Color Yellow (YELLOW) 07/31/17 12:11 Urine Appearance Clear (CLEAR) 07/31/17 12:11 Urine pH 6.0 (5.0 - 8.0) 07/31/17 12:11 Ur Specific [place] 1.010 (1.000-1.030) 07/31/17 12:11 Urine Protein Negative (NEGATIVE) 07/31/17 12:11 Urine Glucose (UA) Negative (NEGATIVE) 07/31/17 12:11 Urine Ketones Negative (NEGATIVE) 07/31/17 12:11 Urine Occult Blood Negative (NEGATIVE) 07/31/17 12:11 Urine Nitrite Negative (NEGATIVE) 07/31/17 12:11 Urine Bilirubin Negative (NEGATIVE) 07/31/17 12:11 Urine Urobilinogen Normal (NORMAL) 07/31/17 12:11 Ur Leukocyte Esterase Negative (NEGATIVE) 07/31/17 12:11 - Plan (1) Dehydration Status: Acute Plan: admit, normal saline at 75ml/hr, continue to monitor (2) Hyponatremia Status: Acute Plan: normal saline at 75ml/hr, continue to monitor (3) Hypotension Status: Acute Qualifiers: Hypotension type: unspecified hypotension type Qualified Code(s): I95.9 - Hypotension, unspecified
--- NOTE | 2017-08-28 00:42 | DR.CARTERD ---
- Discharge Summary for: Discharge Summary for Date of:: 08/02/17 - Admission Date Date of Admission: 07/31/17 - Admission Diagnoses Admission Diagnosis: (1) Dehydration (2) Hyponatremia (3) Hypotension - Discharge Date Discharge Date: 08/02/17 - Discharge Diagnoses Discharge Diagnosis: (1) Dehydration (2) Hyponatremia (3) Hypotension - Hospital Course Hospital Course: Ms. Zamora is a 87 year old patient of ours who presented to the emergency room with reports of "feeling bad" and abdominal pain. Patient was released from the hospital on Friday and continued to feel bad since discharge. Associated symptoms included weakness, fatigue, shortness of breath, dizziness, and muscle pain. On arrival, vitals were 97.1, 87, 20, 100% RA, 97/50. Labs were obtained. Abnormal Labs included the following: WBC 10.6, Sodium 128, Chloride 91, BUN 35, Creatinine 2.04, GFR af 30, GFR non 24, Glucose 106, Total Bilirubin 1.30. Cardiac enzymes within normal limits. Chest X-Ray revealed: Persistent small left pleural effusion and atelectasis of the mid left lung. EKG revealed: Atrial Fibrillation, rate=78. She was started on Normal saline at 75ml/hr. Patient admitted to the hospital as observation and started on IV fluids for gentle hydration. On day two, patient was alert and oriented. She was noted with complaints of generalized weakness. Vitals were 97.8-82-17-100%- 123/59. Abnormal labs were: Wbc 10.3, Hct 35.8, Sodium 129, Chl 96, Bun 23, Creat 1.22, Bnp 423, Tot protein 5.8, Albumin 2.9, Cardiac enzymes and ekg's wnl. We continued with IV fluids and treatments. On day three, patient reported she was feeling better. Patient denied shortness of breath, dizziness, abdominal pain. No acute distress was noted. Lungs clear to auscultation. Vital signs stable. Labs wnl. Renal function was normal after receiving IV fluids. We planned for discharge. Instructions for medications and follow up were discussed with patient and family, both voiced understanding. Patient discharged home in stable condition with family. - Discharge Medications Discharge Medications: Home Medication List alprazolam [Xanax] 1 tab PO HS PRN 07/31/17 [History] triamterene-hydrochlorothiazid [Dyazide] 1 cap PO QAM #30 cap 08/02/17 [Rx] Prescriptions: triamterene-hydrochlorothiazid [Dyazide] Alexander Valenzuela Home medications carvedilol 1 tab PO BID 07/25/17 pantoprazole [Protonix] 1 tab PO DAILY 07/25/17 potassium chloride 2 tab PO DAILY 07/25/17 rivaroxaban 1 tab PO DAILY 07/25/17 sacubitril-valsartan 0.5 tab PO BID 07/25/17 ipratropium-albuterol 1 ea NEB TID #50 ml 07/28/17 simethicone [Gas-X Extra Strength] 125 mg PO QID #20 cap 07/28/17 - Discharge Disposition Discharge Disposition: Patient is to follow up in our office in one week.
== END 2017-08-02 09:20 | disposition home or self-care (01) ==
LOC: ICU 01:00 → ER 01:00 → ICU 06:35
PROVIDERS: ADMIT Internal Medicine; ATTEND Internal Medicine
DX: J90 Pleural effusion, not elsewhere classified; E86.0 Dehydration; I48.91 Unspecified atrial fibrillation; R10.9 Unspecified abdominal pain; R07.89 Other chest pain; R42 Dizziness and giddiness; E87.1 Hypo-osmolality and hyponatremia; R94.31 Abnormal electrocardiogram [ECG] [EKG]; I95.9 Hypotension, unspecified
CPT/HCPCS: 36415; 71010; 71045; 80053; 81003; 82150; 82550; 82553; 83690; 83735; 83880; 84484; 85025; 93005; 94640; 96365; 97116; 97162; 97166; 97530; 99284; A4222; S0179; G0378; J7030; J7620